=== PATIENT | male | born 1960 | race Caucasian/White ===

== ENCOUNTER 2016-09-04 12:31 | Emergency (ER) | payer MEDICAID ==
[2016-09-04] MEDS ORDERED: OPTIRAY 350 100 ML VIAL HMH IV ONE (12:32)
== END 2016-09-04 16:45 | disposition home or self-care (01) ==
LOC: ER 12:31
CPT/HCPCS: 36415; 71020; 71260; 80053; 82553; 83880; 84484; 85025; 93005